=== PATIENT | female | born 1950 | race Caucasian/White ===

== ENCOUNTER → 2018-09-07 | Outpatient (REF) | LOC: ZLAB.WCH 15:55 | DX: Z01.89 Encounter for other specified special examinations (principal) ==

== ENCOUNTER → 2019-02-10 | Outpatient (REF) | LOC: ZLAB.WCH 12:21 | DX: Z01.89 Encounter for other specified special examinations (principal) ==

== ENCOUNTER → 2020-06-11 | Outpatient (CLI) | payer MEDICARE, BC ==
[~2020-06-11] MED LIST: ULTRAM 50MG TAB50 MG PO; ZOCOR 20MG20 MG PO
== END ==
LOC: MC.RAD 07:02
DX: C50.212 Malignant neoplasm of upper-inner quadrant of left female breast (principal); Z17.0 Estrogen receptor positive status [ER+]

== ENCOUNTER → 2021-05-25 | Outpatient (CLI) | payer MEDICARE, BC | LOC: MC.RAD 05-20 10:15 | DX: C50.212 Malignant neoplasm of upper-inner quadrant of left female breast (principal); Z90.12 Acquired absence of left breast and nipple; Z98.82 Breast implant status ==

== ENCOUNTER → 2022-05-26 | Outpatient (CLI) | payer MEDICARE, BC | LOC: MC.RAD 09:06 | DX: Z12.31 Encounter for screening mammogram for malignant neoplasm of breast (principal); Z85.3 Personal history of malignant neoplasm of breast ==